=== PATIENT | male | born 1955 | race Caucasian/White ===

== ENCOUNTER → 2023-09-22 09:54 | Outpatient (CLI) | payer MEDICARE, OTHER, SELFPAY ==
--- NOTE | 2023-09-22 09:59 | DI.NM.S_ITS ---
PROCEDURE: NM SENTINEL NODE W IMAGING RADIOPHARMACEUTICAL: 0.5 mCi Millipore filtered Tc-99m sulfur colloid. INDICATIONS: Melanoma in left arm COMPARISON: None. TECHNIQUE: Written informed consent was obtained. The area around the region of concern in the anterior left forearm was prepped and draped in a sterile fashion. Tc-99m sulfur colloid was injected intra-dermally and subcutaneously around the biopsy scar. Images were obtained approximately 60 minutes after tracer injection. FINDINGS: There is a focal uptake in the left axilla compatible with a lymph node. A smaller lymph node may be present although the images are quite photopenic, therefore, difficult to differentiate from artifact. IMPRESSION: At one sentinel node in the right axilla. Dictated by: Salty Hutton M.D. on 09/22/2023 at 12:48 Approved by: Salty Hutton M.D. on 09/22/2023 at 12:52
== END ==
LOC: NUCM 09:58
PROVIDERS: PCP Family Medicine; Referring Provider Surgery; Visit Provider Surgery
DX: C43.9 Malignant melanoma of skin, unspecified (principal); C43.62 Malignant melanoma of left upper limb, including shoulder
CPT/HCPCS: 78195; A9541

== ENCOUNTER 2023-09-22 10:24 | Day surgery (SDC) | payer MEDICARE, OTHER, SELFPAY ==
[2023-09-16 15:15] VITALS: BMI 29.0
--- NOTE | 2023-09-22 | PATH_ITS ---
[facility] Accession Number: [id number] No. of containers..02 Tissue . 01 Material submitted: . PART A: lymph node - LEFT AXILLARY SENTINAL NODE PART B: arm - LEFT ARM MELANOMA . 01 Diagnosis: A. Left Axillary [place] Node, Excision: One lymph node negative for metastatic melanoma (0/1). . B. Left Arm, Excision: Residual malignant melanoma in situ, examined inked margins are free. No evidence of residual invasive malignant melanoma is identified in sections examined. Dermal scar, consistent with procedural site changes. See comment. MRV 10/01/2023 1120 Local . 01 Comment: A) Melan-A and HMB45 stains are performed on blocks A1 which support the above diagnosis. . B) Additional step sections are examined on block B3. In addition, Melan-A stains are performed on blocks B3, B4, B5, B6, B7, B8, and B9, which support the above diagnosis. There is a background of lentiginous junctional melanocytic hyperplasia, most consistent with chronic sun exposure. In addition, there are a few single melanocytes noted in the superficial dermis on the Melan-A stains that are favored to be reactive in nature. The prior slides nor pathology report are available for review; therefore, clinical correlation and correlation with prior biopsy is recommended. . [place] parts of this case have been reviewed by Dr. Leyla Cunningham, who agrees with the above diagnosis. . * This test was developed and its performance characteristics determined by [employer]. It has not been cleared or approved by the U.[place]. Food and Drug Administration. The FDA has determined that such clearance or approval is not necessary. This test is used for clinical purposes. It should not be regarded as investigational or for research. . 01 Electronically signed: . Carmelo Bardales MD, Dermatopathologist NPI- [id number] . 01 Gross description: . A. Received in formalin labeled with the patient's name, , and left axillary sentinel node biopsy, consists of a yellow lobulated soft tissue fragment measuring 1.9 x 1.5 x 1.1 cm. Palpation reveals a turner lymph node candidate measuring 1.3 cm in greatest dimension. The lymph node candidate is bisected and submitted entirely in cassette A1. B. Received in formalin, labeled with the patient's name, , and left arm melanoma, consists of an oriented ellipse of skin with a suture at one tip designating superior per the requisition, and is now arbitrarily designated 12 o'clock. The specimen measures 5.0 cm from 12 to 6, 2.1 cm from 3 to 9, and 1.2 cm thick with a linear defect located centrally, consistent with previous scar measuring 3.1 cm in length. Inked as follows: 12 to 3 orange, 3 to 6 blue, 6 to 9 to 12 green, and is serially sectioned from 12 to 6 into 15 slices. Submitted entirely as follows: B1: Tips. B2-B9: Remaining sequential slices. See diagram. ([id number]) /MRV 09/23/2023 1217 Local . 01 Pathologist provided ICD-10: C43.9 . 01 CPT . 277475, 763944, L25778, U31854 Specimen Comment: A courtesy copy of this report has been sent to [phone] Performed at: 01 [facility] [address] [place] [address], [place], [place] [id number] MD Damien Lane MD Phone: [phone]
[2023-09-22 11:29] VITALS: BP 137/88; PULSE 98; RESP 17; TEMP 36.5; O2SAT 99; BMI 28.0
[2023-09-22] MEDS: LACTATED RINGERS 1,000 ML 100 ML IV (11:55)
--- NOTE | 2023-09-22 15:12 | PM.PREOP ---
Pre-operative Note COVID-19 COVID-19 status: Not tested Interval Note History & Physical reviewed/Exam performed by Physician: Yes Changes to H&P: No ASA Class (for procedural sedation): II
[2023-09-22] MEDS: CEFAZOLIN 2 GM/100 ML PREMIX 100 ML IV (15:28)
[2023-09-22] MEDS: ACETAMINOPHEN IV 1,000 MG/100 ML VIAL 400 MG IV (15:40)
--- NOTE | 2023-09-22 16:10 | SUR.OPER ---
Supine on padded OR bed, head on gel donut, right arm secured on padded arm boards at <90 degrees abduction, left arm sterily drapped and in control of the surgeon. Padded wide armboard under left arm also. legs uncrossed, gel pad under bilateral heels, tape over blanket over lower legs.
[2023-09-22] MEDS: BUPIVACAINE 0.5% (PF) 30 ML, EPINEPHrine 0.15 MG INJ (16:23)
[2023-09-22] MEDS: METHYLENE BLUE 50 MG/10 ML VIAL IV (16:31)
[2023-09-22] MEDS: MINERAL OIL LIGHT TOPICAL 10 ML TOP (17:15)
[2023-09-22 17:41] VITALS: BP 122/78; PULSE 102; RESP 15; TEMP 36.4; O2SAT 94
--- NOTE | 2023-09-22 17:41 | PM.OP.1 ---
Operative Date/Time/Diagnoses Date of procedure: 09/22/23 Time of procedure: 17:41 Pre-op diagnosis: Left arm nodular melanoma Post-op diagnosis: same Procedure & Clinicians Procedure: Wide local excision of left arm melanoma Full-thickness skin graft of left arm Left sentinel lymph node biopsy Same procedure as scheduled: Yes Surgeon: Doc Cuellar Anesthesia Type: General Operative Notes Procedure in detail: The patient is a 67-year-old man who presented with a 4 mm thick left arm melanoma. The patient was brought to the operating room and general anesthesia was induced. Roughly 5 mL of straight methylene blue were injected just proximal to the left arm melanoma and the arm was massaged. The left arm and axilla were prepped and draped in the usual fashion and a time-out was performed. We started with the sentinel lymph node biopsy. A 5 cm transverse incision was made under the hairline and a sentinel node was found with a probe. No blue dye was noted. The ex vivo signal was 111 in the background count was 47. No other. No other hot nodes could be isolated. We then packed the axillary wound and moved onto the left arm. The existing scar was about 7 cm long. We then made an elliptical incision measuring 7 cm long by approximately 2.5 cm across to encompass the old incision. This provided an additional 1 cm margin around the previous biopsy wound. Full-thickness excision down to the fascia was taken. A single silk stitch was placed along the superior aspect of the specimen. Next, the wound was decreased in size by closing each and with a deep 3-0 Vicryl dermal suture and a 2-0 nylon mattress stitch. We then took a full-thickness skin graft from the axilla using the existing incision as 1 edge. The graft measured approximately 5 cm x 3 cm. The graft was defatted down to the glistening dermis. The graft was then fenestrated using an 11 blade scalpel. The graft was then sutured to the wound bed using a combination of 3-0 and 4-0 nylon sutures. Some of the sutures were left long for a tie-over bolster. We then trimmed a piece of sponge from a dry scrub brush to fit over the graft. We applied some mineral oil and Xeroform to the graft under the sponge. The bolster was tied in place. Additional 4x4s were placed over the bolster followed by Kerlix wrap followed by a Coban followed by a sling to immobilize the arm. We then closed the axillary incision in layers using multiple interrupted 3-0 Vicryl dermal sutures followed by a running 4-0 Monocryl subcuticular stitch. Steri-Strips and a 4x4s were applied to the axilla. EBL: 10 mL Specimens: Left sentinel lymph node and left arm melanoma Post-operative Condition: stable Disposition: PACU
[2023-09-22 17:46] VITALS: BP 130/70; PULSE 102; RESP 14; O2SAT 93
[2023-09-22 17:51] VITALS: BP 118/73; PULSE 103; RESP 18; O2SAT 92
[2023-09-22 17:56] VITALS: BP 123/73; PULSE 102; RESP 18; O2SAT 93
[2023-09-22] MEDS: OXYCODONE IR 5 MG TABLET PO (17:56)
[2023-09-22] MEDS: ONDANSETRON 4 MG/2 ML INJ IV (17:56)
[2023-09-22 18:03] VITALS: BP 121/71; PULSE 98; RESP 17; TEMP 36.4; O2SAT 94
== END 2023-09-22 18:15 | disposition home or self-care (01) ==
PROVIDERS: PCP Family Medicine; Referring Provider Surgery; Visit Provider Surgery
PROC: (CPT 38500; principal; 2023-09-22 13:45)
DX: C43.62 Malignant melanoma of left upper limb, including shoulder (principal); I10 Essential (primary) hypertension; I25.10 Atherosclerotic heart disease of native coronary artery without angina pectoris; I25.2 Old myocardial infarction; Z95.5 Presence of coronary angioplasty implant and graft
CPT/HCPCS: 38500; 15200; 11603; 78195; A9541; J0136; J0171; J0690; J1100; J2405; J2704; J3010; Q9968

== ENCOUNTER → 2024-03-07 11:12 | Outpatient (CLI) | payer MEDICARE, OTHER, SELFPAY ==
--- NOTE | 2024-03-07 11:13 | DI.MRI.S_ITS ---
PROCEDURE: MR SHOULDER LT WO CON INDICATIONS: LEFT ROTATOR CUFF SYNDROME/TEAR OR RUPTURE TECHNIQUE: Noncontrast oblique coronal T2 fast spin echo with fat saturation, oblique sagittal T1 spin echo and T2 fast spin echo with fat saturation, axial T1 spin echo and T2 fast spin echo with fat saturation through the shoulder. COMPARISON: None. FINDINGS: Image quality: Excellent. Rotator cuff: In the supraspinatus, there is mild tendinosis with low-grade bursal sided and interstitial tear. The infraspinatus is unremarkable. The tendon of the teres minor is unremarkable. Mild tendinosis of the subscapularis, without tear. No muscle edema. Moderate fatty atrophy of the teres minor. Bones and bursae: Mild degenerative changes of the acromioclavicular joint. Type 1 acromion. No os acromiale. Trace subacromial/subdeltoid bursitis. Mild subchondral marrow edema in the greater tuberosity, reactive. 8 mm T2 hyperintense lesion in the proximal humeral diaphysis (series 9, image 13). In addition, there are 2 T2 hyperintense lesions in the scapula about the inferior glenoid, with the larger 1 measuring 1.6 cm. No acute fracture. Capsule and soft tissues: Tear of the superior labrum, extending anteriorly to the anterior superior labrum. Tear of the posterior labrum as well. Mild tenosynovitis of the extra-articular biceps tendon with mild tendinosis of the extra-articular biceps tendon. Mild tendinosis of the intra-articular biceps tendon. Trace glenohumeral effusion. Edema within the rotator cuff interval with thickening of the inferior glenohumeral ligament, suggestive of adhesive capsulitis. Other findings: Mild T2 hyperintensities in the left upper lung. IMPRESSION: 1. Mild degenerative changes of the acromioclavicular joint. 2. Low-grade tear of the supraspinatus. 3. Moderate fatty atrophy of the teres minor, without tear. 4. Multiple T2 hyperintense marrow replacing lesion, in the proximal humerus and the scapula, incompletely characterized but raises concern for osseous metastasis. Recommend further evaluation with MR shoulder with intravenous contrast, or bone scintigraphy. 5. Findings suggestive of adhesive capsulitis 6. Multiple T2 hyperintensities in the left upper lung, incompletely evaluated. Recommend further evaluation with CT chest. Dictated by: Lesly Nguyen M.D. on 03/07/2024 at 20:52 Approved by: Lesly Nguyen M.D. on 03/07/2024 at 21:03
== END ==
PROVIDERS: PCP Family Medicine; Referring Provider Family Medicine; Visit Provider Family Medicine
DX: M75.112 Incomplete rotator cuff tear or rupture of left shoulder, not specified as traumatic (principal); S43.432A Superior glenoid labrum lesion of left shoulder, initial encounter; M89.9 Disorder of bone, unspecified; M65.822 Other synovitis and tenosynovitis, left upper arm
CPT/HCPCS: 73221

== ENCOUNTER → 2025-07-28 08:38 | Outpatient (CLI) | payer MEDICARE, OTHER, SELFPAY ==
--- NOTE | 2025-07-28 08:41 | DI.MRI.S_ITS ---
PROCEDURE: MR HEAD/BRAIN WO/W CON INDICATIONS: Secondary malignant neoplasm of bone TECHNIQUE: Noncontrast axial T1 spin echo, axial T2 fast spin echo, sagittal and axial FLAIR, coronal T2 fast spin echo, axial gradient echo, axial diffusion and ADC through the brain. After the administration of contrast, axial and coronal and sagittal T1 spin echo with fat saturation through the brain. COMPARISON: None. FINDINGS: Image quality: Excellent. CSF spaces: Basal cisterns are patent. No extra-axial fluid collections. Ventricles are normal in size and shape. Brain: No midline shift. No intracranial bleeds or masses. No abnormal intracranial enhancement. There is cerebral volume loss for age. There is periventricular white matter chronic small vessel ischemic change. The brainstem appears normal. Diffusion-weighted images demonstrate no acute infarct. No chronic ischemic insults. Normal intravascular flow voids are present. Skull and face: Calvarial marrow is normal in signal. Orbits appear normal. Sinuses: Complete opacification of the right maxillary sinus. The remaining paranasal sinuses and mastoids appear clear. IMPRESSION: No acute intracranial abnormalities or abnormal intracranial enhancement. No definite calvarial lesions are identified. Age-related global volume loss and chronic microvascular ischemic changes are present. Dictated by: Lake Thomas M.D. on 07/28/2025 at 11:59 Approved by: Lake Thomas M.D. on 07/28/2025 at 12:04
== END ==
LOC: MRI 08:39
PROVIDERS: PCP Family Medicine; Referring Provider Family Medicine; Visit Provider Physician Assistant Medical
DX: C43.9 Malignant melanoma of skin, unspecified (principal); C79.51 Secondary malignant neoplasm of bone
CPT/HCPCS: 70553; A9579